=== PATIENT | male | born 2005 | race Caucasian/White ===

== ENCOUNTER 2025-05-28 10:40 | Emergency (ER) | payer SELFPAY | END 2025-05-28 12:00 | disposition home or self-care (01) | LOC: CSHERS 10:40 | DX: R09.81 Nasal congestion (principal); F17.210 Nicotine dependence, cigarettes, uncomplicated; F17.290 Nicotine dependence, other tobacco product, uncomplicated | CPT/HCPCS: 87428; 99283 ==